=== PATIENT | male | born 1970 | race Caucasian/White ===

== ENCOUNTER 2022-05-12 06:27 | Day surgery (SDC) | payer BC ==
[~2022-05-12 06:27] MED LIST: Sodium Chloride 0.9% 10 ML Syringe FLUSH PRN
[2022-05-12] MEDS ORDERED: Propofol 200 MG/20 ML SDV IV ONE (06:28)
[2022-05-12] MEDS: Lactated Ringers 1,000 ML IV SCH (07:04)
[2022-05-12] MEDS ORDERED: Sucralfate 1 GM Tab PO SCH (11:30)
== END 2022-05-12 08:52 | disposition home or self-care (01) ==
LOC: FB.SDS 06:27
PROVIDERS: ATTEND Surgery
DX: K29.50 Unspecified chronic gastritis without bleeding (principal); K31.89 Other diseases of stomach and duodenum; K25.9 Gastric ulcer, unspecified as acute or chronic, without hemorrhage or perforation; K40.20 Bilateral inguinal hernia, without obstruction or gangrene, not specified as recurrent; F17.220 Nicotine dependence, chewing tobacco, uncomplicated; K21.00 Gastro-esophageal reflux disease with esophagitis, without bleeding; J45.40 Moderate persistent asthma, uncomplicated; Z79.899 Other long term (current) drug therapy; Z98.890 Other specified postprocedural states
CPT/HCPCS: 00731; 88305; 88342; J2704; J7120